=== PATIENT | female | born 1985 | race American Indian/Alaskan Native ===

== ENCOUNTER 2020-06-09 20:55 | Emergency (ER) | payer SELFPAY ==
[~2020-06-09] VITALS: Ht 142.2 cm; Wt 81.6 kg
[2020-06-09] MEDS ORDERED: CHOL500062 PO (21:07)
[2020-06-09] MEDS ORDERED: CEFTRIAXONE 500 MG VIAL IM ONE (21:15)
[2020-06-09] MEDS ORDERED: AZITHROMYCIN 250 MG TABLET PO ONE (21:15)
[2020-06-09] MEDS ORDERED: AZITHROMYCIN 250 MG TABLET ONE (21:22)
[2020-06-09] MEDS ORDERED: CEFTRIAXONE 500 MG VIAL ONE (21:22)
[2020-06-09] MEDS ORDERED: LIDOCAINE HCL 1% 20 ML VIAL ONE (21:23)
--- NOTE | 2020-06-09 21:24 | NUR ---
Patient discharged to home in stable condition. Written and verbal after care instructions given. Patient verbalizes understanding of instructions. Stressed follow up or return to ER for worsening s/s. Patient ambulated with stable gait.
[2020-06-09 21:25] VITALS: BP 128/79
== END 2020-06-09 21:26 | disposition home or self-care (01) ==
LOC: ER 20:58
DX: A74.9 Chlamydial infection, unspecified (principal)
CPT/HCPCS: 96372; 99283; J0696; J3490; A4663; Q0144